=== PATIENT | male | born 1965 | race African-American/Black ===

== ENCOUNTER 2017-11-10 10:15 | Day surgery (SDC) | payer BC ==
[~2017-11-10] VITALS: Ht 188 cm; Wt 153.6 kg
--- NOTE | ~2017-11-10 | OP ---
PATIENT NAME: NOAM ONOFRE MEDICAL RECORD: [id number] :67 LOCATION:[facility] ADMISSION DATE: SURGEON: TESSA LAGUNAS DO DATE OF OPERATION: 11/10/2017 PROCEDURE: Colonoscopy with polypectomy and biopsy. INDICATIONS FOR PROCEDURE: Screening for colorectal cancer and history of chronic opioid-induced constipation. SCOPE: Olympus video pediatric colonoscope. MEDICATIONS: Propofol 450 mg IV per anesthesia. WITHDRAWAL TIME: 14 minutes. ESTIMATED BLOOD LOSS: Minimal. COMPLICATIONS: None. FINDINGS: Informed consent was given. The patient was made comfortable with the above medication. After reaching an adequate level of sedation by slow IV push, the patient was placed on his left side. A digital rectal examination was performed and was normal. The endoscope was then advanced under direct visualization through the rectum to the cecum, confirmed by the presence of the appendiceal orifice and ileocecal valve. The endoscope is slowly withdrawn. Mucosa was carefully examined. Prep quality was excellent. There were 2 polyps visualized on today's examination. Both were benign-appearing and sessile and ranged in size from 3-5 mm in diameter. They were both removed using hot forceps in 1 piece and completely retrieved. They were both located in the ascending colon. Also, in the ascending colon, there was a single submucosal lesion which appeared consistent with a lipoma. A single biopsy was taken from the surface to confirm that there was not serrated adenomatous tissue with a similar appearance to the lipoma. Retroflexion was performed in the rectum with a normal appearing rectal wall. The endoscope was then withdrawn from the patient. The patient tolerated the procedure well and there were no complications. IMPRESSION: 1. Two polyps as described above removed from the ascending colon using hot forceps. 2. Lipoma in the ascending colon with a biopsy taken. PLAN AND RECOMMENDATIONS: 1. Discharge home when recovery parameters are met. 2. Follow up biopsy specimen results. 3. Continue current medications. 4. Recall colonoscopy will be dependent on results of biopsy specimens. If these are 2 adenomatous polyps in the biopsy and the lipoma does not show any presence of adenomatous tissue, recall will likely be 5 years. TRANSINT:[id number] Voice Confirmation ID: [id number] DOCUMENT ID: [id number] OPERATIVE REPORT [id number] NOAM ONOFRE TESSA LAGUNAS DO at 0934 CC: [id number] DICTATION DATE: 11/10/17 0954 NEPHROLOGIST: 11/10/17 1211 [facility] 11/10/17 [facility] [address] [id number]
[2017-11-10 08:24] VITALS: Ht 188 cm; Wt 153.6 kg
[2017-11-10 08:37] LABS: HEMATOCRIT 43.9 % (42.0-54.0); HEMOGLOBIN 15.1 g/dL (13.5-17.5); MCH 28.8 pg (26.0-34.0); MCHC 34.4 g/dL (31.0-37.0); MCV 83.6 fL (80.0-100.0); MEAN PLATELET VOLUME 9.8 fL (7.4-10.4); RBC 5.25 10x6/uL (4.20-6.10); RDW 14.1 % (11.5-14.5); WBC 6.1 10x3/uL (4.8-10.8)
[~2017-11-10 10:15] MED LIST: AMOXICILLIN500 M1 PO; COMBIVENT RESPIM4 GM INH; CYCLOBENZAPRINE10 MG PO; FISH OIL 1,0001 CA1 PO; NORVASC10 MG PO; ULTRAM50 MG PO
== END 2017-11-10 10:50 | disposition home or self-care (01) ==
LOC: D.OPS 10:15
PROVIDERS: Anesthesiology
DX: Z12.11 Encounter for screening for malignant neoplasm of colon (principal); K59.03 Drug induced constipation; F17.200 Nicotine dependence, unspecified, uncomplicated; I10 Essential (primary) hypertension; K21.9 Gastro-esophageal reflux disease without esophagitis; G47.30 Sleep apnea, unspecified; E66.9 Obesity, unspecified; Z68.41 Body mass index [BMI] 40.0-44.9, adult; Z01.812 Encounter for preprocedural laboratory examination; K63.5 Polyp of colon